=== PATIENT | male | born 1945 | race Caucasian/White ===

== ENCOUNTER 2018-09-16 16:52 | Inpatient (IN) | payer MEDICARE ==
[2018-09-16 17:50] LABS: Hemoglobin 10.7 g/dL (14.0-18.0); Mean Corpuscular HGB CONC 34.1 g/dL (32.0-36.0); Mean Corpuscular Hemoglobin 30.1 pg (27.0-31.0); Mean Corpuscular Volume 88.3 fL (78.0-98.0); Mean Platelet Volume 7.5 fL (7.4-10.4); Platelet Count 119 thou/uL (130-400); RBC Distribution Width 15.1 % (11.5-14.5); Red Blood Cell (RBC) Count 3.56 mill/uL (4.70-6.10); White Blood Cell (WBC) Count 1.4 thou/uL (4.8-10.8)
[2018-09-16 18:03] LABS: Anisocytosis SLIGHT = 6-15 cells (100X) (0-5/hpf); Band 27 % (5-11); Eosinophils 1 % (0-10); Lymphocytes 9 % (21-51); MDiff Complete? YES; Metamyelocyte 1 % (0-0); Monocytes 20 % (0-10); Neutrophil 41 % (42-75); PLT Morphology Comment Appears Decreased; Polychromasia SLIGHT = 2-3 cells (100X) (0-2/hpf); Reactive Lymphocytes 1 % (0-10)
--- NOTE | 2018-09-16 18:16 | RAD ---
PORTABLE CHEST: 09/16/18 PROVIDED CLINICAL HISTORY: Fever. FINDINGS: Heart appears enlarged, which may be at least partially on the basis of portable technique. The left hemidiaphragm is not well visualized, which may be on the basis of left basilar pleural and/or parenc hymal opacity. Cardiomegaly could also produce this appearance. Right lung appears clear. There is no evidence for pneumothorax. Left subclavian implanted port is noted with tip overlying expected locat ion of left brachiocephalic vein. IMPRESSION: Cardiomegaly with left basilar pleural and/or parenchymal opacity not excluded. POS: [facility]
[2018-09-16 18:17] LABS: ALT (SGPT) 78 U/L (8-55); AST (SGOT) 57 U/L (5-34); Albumin 3.4 g/dL (3.4-4.8); Alkaline Phosphatase 160 U/L (40-150); Anion Gap 10 mmol/L (10-20); BUN (Urea Nitrogen) 12 mg/dL (8.4-25.7); Bilirubin, Total 0.8 mg/dL (0.2-1.2); Calc. Creatinine Clearance 0 mL/min (70-130); Calcium 8.9 mg/dL (7.8-10.44); Carbon Dioxide 26 mmol/L (23-31); Chloride 99 mmol/L (98-107); Estimated GFR-MDRD Greater than 90; Globulin 3.6 g/dL (2.4-3.5); Glucose 94 mg/dL (83-110); Potassium 4.1 mmol/L (3.5-5.1); Sodium 131 mmol/L (136-145)
[2018-09-16 19:38] LABS: Bilirubin Negative (Negative); Blood, Urine Negative (Negative); Clarity CLEAR (Clear); Glucose, Urine (Dipstick) Negative (Negative); Leukocyte Trace (Negative); Nitrite Negative (Negative); Protein, Urine (Dipstick) Negative (Neg-Trace); Specific Gravity, Urine 1.017 (1.002-1.036)
[2018-09-16 19:43] LABS: Bacteria/HPF None Seen HPF (None Seen); Hyaline Casts/LPF 0-3 HYALINE CAST LPF (0-3 Hyaline); Pathc Cast-AUWi Flag 0.14 (0-2.49); RBC/HPF 0-3 HPF (0-3); Squamous Epithelial 0-3 HPF (0-3); WBC/HPF 0-3 HPF (0-3)
[2018-09-16] MEDS ORDERED: Cefepime 2 GM VIAL ONE (20:21)
[2018-09-16] MEDS ORDERED: Acetaminophen 325 MG/10.15 ML UDCUP ONE (21:12)
[2018-09-16] MEDS ORDERED: Acetaminophen 650 MG/20.3 ML UDCUP PER TUBE PRN (21:24)
[2018-09-16] MEDS ORDERED: Loperamide HCl 2 MG CAP PER TUBE PRN (21:24)
[2018-09-17] MEDS: Sodium Chloride 0.9% 1,000 ML IV SCH ×2 (00:16→11:52)
[2018-09-17 01:47] VITALS: BMI 32.6
--- NOTE | 2018-09-17 03:05 | HP ---
PRIMARY CARE PHYSICIAN: Dr. Eric Randolph. CHIEF COMPLAINT: Fever. HISTORY OF PRESENT ILLNESS: This patient is a 73-year-old male with a recent diagnosis of esophageal cancer. The patient has had a port placed and a PEG tube placed because of some obstructive symptoms. He started chemotherapy around with Dr. Cormier and he is also receiving external beam radiation therapy with Dr. Matthew. The patient had chemotherapy 8 days ago and was supposed to have chemotherapy again this week, but his counts were too low; therefore, it was withheld. The patient did go to radiation therapy today and everything was fine; however, when he got home, he developed rigors. He checked his temperature and it was 101.7. He called Dr. Cormier's office and was directed to the emergency department. He reports that he was completely asymptomatic prior to these rigors and felt fine yesterday. He has no specific symptoms to suggest any specific site of infection, this is his first time to have neutropenic fever. He has no ill contacts. He does report that he took some ibuprofen this morning for pain in his chest related to the tumor, but otherwise has not taken anything to address fever. He also reports that he has no knowledge of any metastases and was told that his tumor was still localized. FUNCTIONAL STATUS,: The patient reports he can get up, but cannot go very far and is frequently having to lean on mckenzie and such in order to stabilize himself. REVIEW OF SYSTEMS: The patient has had some decreased weight for about 3 months. He also reports that his sleep has been poor. He has no difficulty with hearing, vision, taste, or smell. He is not swallowing presently at all because of obstructive symptoms. He is, however, having frequent vomiting up saliva and secretions that are obstructed at the level of the tumor. He reports that he is not able to give himself adequate amounts of liquids through his PEG tube because after 2 ounces, he starts feeling discomfort. He is requiring [facility]. He denies any constipation, but reports he has chronic diarrhea secondary to the PEG feeds. He has been using [id number] Imodium in order to try to stop this, but it continues to be a problem. He does also report some occasional chest pain, but no palpitations or peripheral edema. He does have some chronic cough which he relates to his asthma, but feels that it is pretty well controlled right now. Denies any shortness of breath or wheezing. He denies dysuria, frequency, nocturia, or incontinence. He does have a few topical skin lesions. He denies numbness, weakness, or tingling. Denies anxiety. He does have some mild depression related to his cancer diagnosis. He has no polyuria, polydipsia, as he is not swallowing at all. All other systems were reviewed and pertinent positives and negatives noted in the history of present illness. PAST MEDICAL HISTORY: Notable for the esophageal cancer and asthma. PAST SURGICAL HISTORY: Colon resection almost 30 years ago. He reports he had a mass outside of his colon that required a partial colectomy at the time of surgery. He has had a left upper chest port placed and a PEG tube placed. He also has a remote history of nasal septal deviation repair and partial palatoplasty. FAMILY HISTORY: Father had hypertension and had a CVA. His mother is still alive at 92, she has diabetes. He has no siblings. SOCIAL HISTORY: The patient has a history remotely of smoking cigars and using smokeless tobacco. He indicates that his oncologist have told him that his cancer is not related to tobacco, but was more related to reflux. He denies alcohol or drugs. He is not . If he needed a surrogate decision maker, it would be his son, Franklin, or alternatively the people who are helping care for him in their home by the name of Mariam. CODE STATUS: Full. ALLERGIES: NONE. CURRENT MEDICATIONS: 1. Flovent 100 mcg one inhalation b.i.d. 2. ProAir HFA 90 mcg inhaled p.r.n. 3. Ipratropium bromide 21 mcg inhaled p.r.n. PHYSICAL EXAMINATION: VITAL SIGNS: Blood pressure 119/69, pulse 91, respirations 20, temperature 100.8, and O2 saturation 95% on room air. GENERAL APPEARANCE: Age-appropriate male, in no distress. He is awake, alert, oriented, very pleasant, very cooperative. The patient did have an episode of vomiting during our interview, in which case his emesis was very thick, clear secretions consistent with saliva. HEENT: PERRL. He has no OP lesions. He does have the partial palatoplasty with an absent uvula. NECK: Supple and symmetric. HEART: Regular rate and rhythm without murmurs, gallops, or rubs. The left chest port is intact and healthy. LUNGS: Completely clear to auscultation bilaterally. There are no wheezes or rales. ABDOMEN: Soft, nontender, and nondistended. The PEG tube site has a small halo of erythema under the external button area. It is slightly blanchable. There is no drainage. He has well-healed midline and right lower quadrant surgical incisions, which appear relatively fresh, but are in fact couple decades old at least. EXTREMITIES: Have 1+ edema in both pretibial areas, but otherwise good pulses. No clubbing or cyanosis. LABORATORY DATA: White count 1.4, hemoglobin 10.7, and platelets are 118. He has 41% neutrophils, 27% bands, 9% lymphocytes, and 20% monocytes. Sodium 131, potassium 4.1, chloride 99, CO2 is 26, BUN 12, creatinine 0.7, glucose 94, lactic acid 1.4. AST 57, ALT 78, alkaline phosphatase 160, and globulin 3.6. Urinalysis is negative. Influenza screen negative. Chest x-ray is clear, but left lower lobe pleural-based thickening or infiltrate could not be ruled out. IMPRESSION AND PLAN: 1. Neutropenic fever. The patient is borderline neutropenic. He will receive vancomycin and cefepime. He has no specific source identified, however, concerning for the fact that he is having this vomiting and the possibility of aspirating, although his lungs are clear and his chest x-ray actually looks pretty good by my review, it is also concerning for the possibility of a bit of redness around his PEG tube site, but should be adequately covered with vancomycin and cefepime, that will need to be watched closely and we will also follow up on his cultures for at least 48 hours and watch his counts daily to see if he can get recovery of his neutrophils. 2. Esophageal cancer. The patient has some obstructive symptoms. He is n.p.o. He is getting PEG tube feeds. We will try to continue those. 3. Chronic dehydration. The patient is not able to take adequate amounts of fluids in through his PEG because of some discomfort related to trying to infuse them. We will keep him on some IV fluids. 4. Vomiting. It appears to be purely regurgitating the saliva and secretions that cannot pass below the esophageal tumor. 5. Elevated liver enzymes. The patient has no evidence of metastasis, maybe related to the chemotherapy. We will continue to monitor. 6. Hyponatremia likely due to some dehydration. We will re-evaluate after some fluids. 7. History of asthma. The patient appears to be very well controlled at this point. He is having no wheezing. We will continue with Sandoval noriega and his usual Flovent. Job ID: [id number]
[2018-09-17] MEDS: Vancomycin HCl 1 GM in Premix Bag 1 BAG IVPB SCH ×3 (05:20→22:44)
[2018-09-17 05:52] LABS: ALT (SGPT) 62 U/L (8-55); AST (SGOT) 44 U/L (5-34); Albumin 2.9 g/dL (3.4-4.8); Alkaline Phosphatase 132 U/L (40-150); Anion Gap 7 mmol/L (10-20); BUN (Urea Nitrogen) 11 mg/dL (8.4-25.7); Bilirubin, Total 0.7 mg/dL (0.2-1.2); Calc. Creatinine Clearance 141 mL/min (70-130); Calcium 8.3 mg/dL (7.8-10.44); Carbon Dioxide 26 mmol/L (23-31); Chloride 106 mmol/L (98-107); Estimated GFR-MDRD Greater than 90; Glucose 95 mg/dL (83-110); Protein, Total 5.9 g/dL (5.8-8.1); Sodium 135 mmol/L (136-145)
[2018-09-17 05:54] LABS: Band 6 % (5-11); Hemoglobin 9.1 g/dL (14.0-18.0); Hypochromia SLIGHT = 6-15 cells (100X) (0-5/hpf); Lymphocytes 10 % (21-51); MDiff Complete? YES; Mean Corpuscular HGB CONC 34.2 g/dL (32.0-36.0); Mean Corpuscular Volume 87.8 fL (78.0-98.0); Mean Platelet Volume 7.4 fL (7.4-10.4); Monocytes 6 % (0-10); Neutrophil 78 % (42-75); PLT Morphology Comment Appears Decreased; Platelet Count 109 thou/uL (130-400); RBC Distribution Width 15.1 % (11.5-14.5); Red Blood Cell (RBC) Count 3.03 mill/uL (4.70-6.10); White Blood Cell (WBC) Count 1.5 thou/uL (4.8-10.8)
[2018-09-17] MEDS: Mometasone 100 MCG HFA INHALER INH SCH ×2 (07:55→19:42)
[2018-09-17] MEDS ORDERED: Mometasone 100 MCG HFA INHALER INH SCH (08:00)
--- NOTE | 2018-09-17 08:24 | PDOC.PN ---
- Subjective Encounter Start Date: 09/17/18 Encounter Start Time: 08:22 Mr. Palomo was seen today in follow-up of Neutropenic Fever. He says he feels fatigued. He does not " hurt anywhere". He got up last night, and found that the PEG tube had become dislodged. - Objective Resuscitation Status - Order Detail: 09/16/18 21:24 Resuscitation Status Routine Resuscitation Status: FULL: Full Resuscitation Discussed with: Patient MAR Reviewed: Yes Vital Signs & Weight: Vital Signs (12 hours) Temp Pulse Resp BP Pulse Ox 09/17/18 07:55 80 16 96 09/17/18 04:35 98.8 F 77 12 123/65 95 09/16/18 23:30 98.5 F 82 16 115/61 95 Weight Weight 221 lb I&O: 09/16/18 09/17/18 09/18/18 06:59 06:59 06:59 Intake Total 900 Balance 900 Result Diagrams: 09/17/18 05:27 09/17/18 05:27 Phys Exam - Physical Examination HEENT: PERRLA, sclera anicteric Respiratory: no wheezing, no rhonchi decreased breath sounds at the bases Cardiovascular: RRR, no significant murmur, no rub Gastrointestinal: soft, non-tender, no distention, positive bowel sounds PEG tube site is clean, no induration or erythema, Musculoskeletal: no edema, pulses present Dx/Plan (1) Neutropenic fever Code(s): D70.9 - NEUTROPENIA, UNSPECIFIED; R50.81 - FEVER PRESENTING WITH CONDITIONS CLASSIFIED ELSEWHERE Status: Acute (2) Esophageal cancer Status: Acute (3) Asthma Code(s): J45.909 - UNSPECIFIED ASTHMA, UNCOMPLICATED Status: Acute (4) PEG tube malfunction Code(s): K94.23 - GASTROSTOMY MALFUNCTION Status: Acute - Plan * Neutropenic Fever- Continue Vancomycin and Cefepime ( possible infectious process in the lungs)- however patient does not endorse any new pulmonary complaints. * Await culture results * Asthma- stable * Dislodged PEG tube- GI has been consulted ( he says the tube was placed in May of this year. .
[2018-09-17] MEDS ORDERED: Fluticasone Propionate HFA 110 MCG AER INH SCH (09:00)
[2018-09-17] MEDS ORDERED: Vancomycin HCl 1 GM in Premix Bag 1 BAG IVPB SCH (09:00)
[2018-09-17] MEDS ORDERED: Acetaminophen 650 MG Suppository PR PRN (09:16)
[2018-09-17] MEDS: Enoxaparin Sodium 40 MG/0.4 ML SYRINGE SC SCH (10:14)
[2018-09-17] MEDS: Cefepime 1 GM in Sodium Chloride 0.9% 100 ML IVPB SCH ×2 (10:51→21:40)
[2018-09-17] MEDS: Famotidine 20 MG TAB PER TUBE SCH ×2 (11:00→21:41)
[2018-09-17 18:58] LABS: INR-International Normal Ratio 1.2; Prothrombin Time 15.1 SEC (12.0-14.7)
[2018-09-17 18:59] LABS: PTT 38.6 SEC (22.9-36.1)
[2018-09-17 19:04] LABS: Cardiac Risk 7.7 (Less than 4.5); Cholesterol 153 mg/dl (< 200 Desired); HDL Cholesterol 20 mg/dL (>60 Neg Risk); LDL Cholesterol, Calculated 104 mg/dL; Magnesium 1.7 mg/dL (1.6-2.6); Phosphorus 2.6 mg/dL (2.3-4.7); Triglycerides 146 mg/dL (Less than 150)
[2018-09-17 21:21] LABS: Vancomycin, Trough 13.4 ug/mL
[2018-09-17] MEDS ORDERED: MULTIVITAMINS IV SCH (22:00)
[2018-09-17] MEDS ORDERED: D15W AA 5% IV SCH (22:00)
[2018-09-17] MEDS ORDERED: FAMOTIDINE IV SCH (22:00)
[2018-09-17] MEDS ORDERED: [UNRECOGNIZED DRUG - OTHER] IV SCH (22:00)
[2018-09-17] MEDS ORDERED: MULTITRACE IV SCH (22:00)
--- NOTE | 2018-09-17 23:49 | CON ---
DATE OF CONSULTATION: REASON FOR CONSULTATION: Neutropenic fever and esophageal cancer. HISTORY OF PRESENT ILLNESS: A 73-year-old male with esophageal carcinoma, currently on concurrent chemotherapy and radiation with carboplatin and Taxol, last received on Saturday, September 08, 2018, presenting to the hospital with fever. The patient states that he went home from radiation yesterday and began having the shakes around 3:30 p.m. He took his temperature and it was 101.7. He called the [facility] and was directed to the emergency department. He denies any other specific symptoms recently. He states prior to this he felt okay and felt fine during radiation. In the ER, the patient was found to have a temperature of 100.8 and has since been afebrile. The patient denies any ongoing fevers or chills, nausea, vomiting, or constipation. The patient does endorse diarrhea, which has been ongoing and is not worse. Chest x-ray done in the emergency room showed a left basilar pleural and/or parenchymal opacity suspicious for possible pneumonia. The patient has been started on vancomycin and cefepime. Once admitted to the floor, the patient was trying to use the urinal at the bedside, and when he lied back down in bed, he noticed his PEG tube had fallen out. The patient does endorse some pain at the site along with redness. The patient is unable to take anything by mouth including liquids due to complete obstruction. REVIEW OF SYSTEMS: Ten-point review of systems negative except as per HPI. PAST MEDICAL HISTORY: Asthma and esophageal cancer. PAST SURGICAL HISTORY: Colon resection approximately 30 years ago, PEG tube placement, MediPort placement, nasal septal deviation repair and partial palatoplasty years ago. FAMILY HISTORY: No family history of cancer. SOCIAL HISTORY: Remote history of cigar smoking and smokeless tobacco. ALLERGIES: NONE. CURRENT MEDICATIONS: Reviewed. PHYSICAL EXAMINATION: VITAL SIGNS: Temperature 99.7, pulse 83, respirations 16, saturating 93% on room air, blood pressure 127/61. GENERAL APPEARANCE: The patient is lying in bed, in no acute distress. Appears comfortable. HEENT: No scleral icterus. No oral lesions. NECK: Supple without lymphadenopathy. CARDIAC: S1 and S2 with regular rhythm and rate. LUNGS: Clear to auscultation bilaterally without wheezes, rales, or rhonchi. ABDOMEN: Soft, nondistended, and nontender. PEG tube site is dressed without PEG tube present. The patient wished that this was not removed again as it had been removed multiple times and is painful. EXTREMITIES: 1+ edema. NEUROLOGIC: Cranial nerves 2 through 12 are grossly intact. PSYCHIATRIC: Awake, alert, and oriented x3 with appropriate mood and affect. LABORATORY DATA: White blood cells 1.5, hemoglobin 9.1, platelets 109, neutrophils 78%, ANC 1170. Sodium 135, potassium 4.0, BUN 11, creatinine 0.66, AST 44, ALT 62, alkaline phosphatase 132, albumin 2.9. Blood cultures, currently no growth to date. IMAGING DATA: Chest x-ray dated September 16, 2018, left hemidiaphragm is not well visualized, which may be on the basis of left basilar pleural and/or parenchymal opacity. ASSESSMENT AND PLAN: A 73-year-old male with localized esophageal adenocarcinoma, currently on concurrent chemotherapy and radiation with carboplatin and Taxol, presenting with febrile neutropenia. The patient had a fever up to 101.7 at home and 100.8 in the hospital and is currently afebrile. There was a question of pneumonia on the chest x-ray; however, the patient does not endorse any symptoms of this. There is some redness around his PEG tube site, which has now fallen out, and he is currently on vancomycin and cefepime. The patient does not appear ill , and his ANC is greater than 1000. Recommend consulting with Dr. Bal for replacement of PEG tube however may consider TPN for 1-2 days to monitor neutropenia to make sure his counts do not drop prior to reinsertion. Continue antibiotics for now and follow up blood cultures. If the patient continues to be afebrile and blood cultures do not grow anything, then antibiotics can be stopped. We will follow along with you. Thank you for this consult. Job ID: [id number] MTDD
--- NOTE | 2018-09-18 03:01 | CON ---
DATE OF CONSULTATION: HISTORY OF PRESENT ILLNESS: The patient is a 73-year-old male with a history of esophageal cancer, who presented with fever and chills. He is presently on chemotherapy and got his last chemotherapy approximately 7 days to 8 days ago. He had a temperature of 101.7 at home. He was up in the hospital, moving around, and noticed his feeding tube had slipped out. He reports he is not able to swallow much liquids and definitely no solids. PAST MEDICAL HISTORY: Includes esophageal cancer and asthma. PAST SURGICAL HISTORY: Colon resection, port placement, jejunostomy tube, and a septal deviation repair. SOCIAL HISTORY: Significant for use of tobacco in the past. He does not drink. ALLERGIES: NONE. HOME MEDICATIONS: Include, 1. Flovent one inhalation b.i.d. 2. ProAir. 3. Ipratropium bromide. FAMILY HISTORY: Negative for GI or liver disease. REVIEW OF SYSTEMS: CONSTITUTIONAL: Positive for fever and chills. Positive for weight loss. EYES: No blurred vision or double vision. ENT: No sore throat or earaches. CARDIOVASCULAR: No chest pain or palpitations. PULMONARY: No shortness of breath, cough, or wheeze. GI: See above. : No hematuria or dysuria. MUSCULOSKELETAL: No joint pain or muscle weakness. SKIN: No rashes. NEUROLOGIC: No numbness or seizure activity. PHYSICAL EXAMINATION: GENERAL: Shows a well-developed and well-nourished white male, in no acute distress. VITAL SIGNS: Temperature 99.7, pulse 83, respiratory rate 16, and blood pressure 127/61. HEENT: Unremarkable. NECK: Supple. CHEST: Clear. CARDIOVASCULAR: Regular rate and rhythm. ABDOMEN: Soft, tender around the jejunostomy site. There is some redness and tenderness. RECTAL: Deferred. EXTREMITIES: Normal. NEUROLOGIC: Nonfocal. LABORATORY DATA: Show admission white blood cell count of 1.4, hemoglobin 10.7, hematocrit 31.5, platelet count 119, he had 41% neutrophils and 27% bands. Chemistry is significant for an AST of 57, ALT of 78, and alkaline phosphatase of 160; repeat showed an AST of 44 and ALT of 62. ASSESSMENT: 1. Failed J-tube. 2. History of esophageal cancer, undergoing radiochemotherapy. 3. J-tube site infection, mild. 4. Neutropenic fever. 5. Malnutrition. RECOMMENDATIONS: 1. The question here is whether the patient will undergo a PEG versus jejunostomy replacement. Either way, because of his neutropenia, these cannot be done at the present time. 2. TPN until neutropenia resolves. Then, a decision can be made about whether to place a gastrostomy versus jejunostomy. 3. Antibiotic coverage. Job ID: [id number]
[2018-09-18 05:07] LABS: ALT (SGPT) 47 U/L (8-55); AST (SGOT) 42 U/L (5-34); Albumin 2.7 g/dL (3.4-4.8); Alkaline Phosphatase 118 U/L (40-150); Anion Gap 11 mmol/L (10-20); BUN (Urea Nitrogen) 10 mg/dL (8.4-25.7); Bilirubin, Total 0.6 mg/dL (0.2-1.2); Calc. Creatinine Clearance 146 mL/min (70-130); Calcium 8.2 mg/dL (7.8-10.44); Carbon Dioxide 20 mmol/L (23-31); Chloride 105 mmol/L (98-107); Estimated GFR-MDRD Greater than 90; Globulin 3.2 g/dL (2.4-3.5); Glucose 126 mg/dL (83-110); Potassium 4.4 mmol/L (3.5-5.1); Protein, Total 5.9 g/dL (5.8-8.1); Sodium 132 mmol/L (136-145)
[2018-09-18 05:11] LABS: Band 20 % (5-11); Hemoglobin 9.3 g/dL (14.0-18.0); Lymphocytes 12 % (21-51); MDiff Complete? YES; Mean Corpuscular HGB CONC 34.1 g/dL (32.0-36.0); Mean Corpuscular Hemoglobin 30.3 pg (27.0-31.0); Mean Corpuscular Volume 88.7 fL (78.0-98.0); Mean Platelet Volume 8.6 fL (7.4-10.4); Monocytes 16 % (0-10); Neutrophil 52 % (42-75); PLT Morphology Comment Appears Decreased; Platelet Count 90 thou/uL (130-400); RBC Distribution Width 15.1 % (11.5-14.5); Red Blood Cell (RBC) Count 3.07 mill/uL (4.70-6.10); White Blood Cell (WBC) Count 1.8 thou/uL (4.8-10.8)
[2018-09-18] MEDS: Vancomycin HCl 1 GM in Premix Bag 1 BAG IVPB SCH ×3 (05:51→23:02)
[2018-09-18] MEDS: Mometasone 100 MCG HFA INHALER INH SCH ×2 (06:40→19:24)
--- NOTE | 2018-09-18 08:14 | PDOC.PN ---
- Subjective Encounter Start Date: 09/18/18 Encounter Start Time: 08:12 Mr. Palomo was seen today in follow-up of Neutropenic fever, and Dislodged J- tube. Today he is feeling a bit fatigued. He has an occasional cough, but attributes this to Asthma. - Objective Resuscitation Status - Order Detail: 09/16/18 21:24 Resuscitation Status Routine Resuscitation Status: FULL: Full Resuscitation Discussed with: Patient MAR Reviewed: Yes Vital Signs & Weight: Vital Signs (12 hours) Temp Pulse Resp BP Pulse Ox 09/18/18 06:40 83 16 96 09/18/18 04:00 98.7 F 86 16 106/61 95 09/17/18 23:48 98.8 F 95 20 134/70 94 L Weight Admit Weight 221 lb Weight 221 lb I&O: 09/17/18 09/18/18 09/19/18 06:59 06:59 06:59 Intake Total 900 1310 Balance 900 1310 Result Diagrams: 09/18/18 04:28 09/18/18 04:28 Additional Labs: Accuchecks 09/17/18 23:22 POC Glucose 147 H Phys Exam - Physical Examination HEENT: PERRLA Respiratory: no wheezing, no rales, no rhonchi, clear to auscultation bilateral Cardiovascular: RRR, no significant murmur, no rub Gastrointestinal: soft, non-tender, no distention, positive bowel sounds Musculoskeletal: edema present + trace pedal edema Dx/Plan (1) Neutropenic fever Code(s): D70.9 - NEUTROPENIA, UNSPECIFIED; R50.81 - FEVER PRESENTING WITH CONDITIONS CLASSIFIED ELSEWHERE Status: Acute (2) Esophageal cancer Status: Acute (3) Asthma Code(s): J45.909 - UNSPECIFIED ASTHMA, UNCOMPLICATED Status: Acute (4) PEG tube malfunction Code(s): K94.23 - GASTROSTOMY MALFUNCTION Status: Acute - Plan * Neutropenic fever- he has been afebrile, and his cultures are negative so far. * His ANC is about 1,260- and therefore can discontinue Neutropenic precautions * Dislodged J-tube- discussed with Dr. Cormier- Surgery has been consulted, to replace the tube * Asthma- stable * Esophageal cancer- he is actively being treated..
[2018-09-18] MEDS: Enoxaparin Sodium 40 MG/0.4 ML SYRINGE SC SCH (08:33)
[2018-09-18] MEDS: Famotidine 20 MG TAB PER TUBE SCH ×2 (08:33→23:03)
[2018-09-18] MEDS: Sodium Chloride 0.9% 1,000 ML IV SCH (08:38)
[2018-09-18] MEDS: Cefepime 1 GM in Sodium Chloride 0.9% 100 ML IVPB SCH ×2 (08:38→20:30)
--- NOTE | 2018-09-18 13:54 | PRG ---
DATE OF SERVICE: 09/18/2018 SUBJECTIVE: The patient is feeling about the same. OBJECTIVE: VITAL SIGNS: Temperature 98.6, pulse 84, respiratory rate 18, and blood pressure 123/71. CHEST: Clear. CARDIOVASCULAR: Regular rate and rhythm. ABDOMEN: Benign. LABORATORY DATA: Shows a white blood cell count of 1.8, hemoglobin 9.3, platelet count of 90. ASSESSMENT: 1. Failed J-tube. 2. Esophageal cancer. 3. Neutropenic fever. RECOMMENDATIONS: 1. Continue TPN until J-tube can be replaced. 2. We will sign off. Job ID: [id number]
[2018-09-18 21:27] LABS: Vancomycin, Trough 14.9 ug/mL
[2018-09-18] MEDS: Multivitamins, Adult 10 ML, Multitrace-5 5 ML, Fat Emulsion 250 ML in D15W-AA 5% with L... IV SCH (23:04)
--- NOTE | 2018-09-19 01:28 | HP ---
HISTORY OF PRESENT ILLNESS: Oli Palomo is a 73-year-old male patient with esophageal cancer. I have seen him in the office because of feeding tube mechanical problems, educated him on this. I explained to the family it is very important to replace the tube comes out immediately. The patient was unfortunately hospitalized on 09/16/2018. During this hospitalization, his feeding tube became dislodged and it was not replaced. Dr. Bal saw him. Unfortunately, this tube has been out too long and he will need another laparotomy to replace it. Gastrostomy tube is not appropriate due to the fact that he will need a gastric pull-up for his future surgery plan. PAST MEDICAL HISTORY: Esophageal cancer, asthma. PAST SURGICAL HISTORY: Colon resection more than 30 years ago, open right lower quadrant transverse incision, he said it was benign. Left subclavian vein MediPort, feeding jejunostomy tube placement in [place]. Nasal septal defect. SOCIAL HISTORY: Tobacco, none currently. Alcohol, none currently. Drug use, none. MEDICATIONS: 1. Flovent. 2. ProAir. PHYSICAL EXAMINATION: VITAL SIGNS: 5 feet 9 inches, 221 pounds, 32 BMI. 98.6, 84, and 123/71. HEENT: Ears, eyes, nose and throat unremarkable. LUNGS: Clear to auscultation. CARDIAC: Regular rate and rhythm without murmur or gallop. ABDOMEN: Soft and nontender. Transverse right lower quadrant incision from prior colon resection 30 years ago. Midline incision supraumbilical from feeding tube placement. ASSESSMENT AND PLAN: Feeding tube . We will plan replacement of his feeding tube. Risks and benefits explained, he consents. Job ID: [id number]
[2018-09-19] MEDS: Vancomycin HCl 1 GM in Premix Bag 1 BAG IVPB SCH ×2 (04:50→13:59)
[2018-09-19 05:31] LABS: ALT (SGPT) 46 U/L (8-55); AST (SGOT) 37 U/L (5-34); Albumin 2.8 g/dL (3.4-4.8); Alkaline Phosphatase 126 U/L (40-150); Anion Gap 11 mmol/L (10-20); BUN (Urea Nitrogen) 10 mg/dL (8.4-25.7); Bilirubin, Total 0.5 mg/dL (0.2-1.2); Calc. Creatinine Clearance 155 mL/min (70-130); Calcium 8.4 mg/dL (7.8-10.44); Carbon Dioxide 22 mmol/L (23-31); Chloride 104 mmol/L (98-107); Estimated GFR-MDRD Greater than 90; Globulin 3.2 g/dL (2.4-3.5); Glucose 144 mg/dL (83-110); Potassium 3.9 mmol/L (3.5-5.1); Sodium 133 mmol/L (136-145)
[2018-09-19 05:47] LABS: Band 15 % (5-11); Eosinophils 1 % (0-10); Hemoglobin 9.8 g/dL (14.0-18.0); Lymphocytes 10 % (21-51); MDiff Complete? YES; Mean Corpuscular HGB CONC 34.1 g/dL (32.0-36.0); Mean Corpuscular Hemoglobin 30.1 pg (27.0-31.0); Mean Corpuscular Volume 88.2 fL (78.0-98.0); Mean Platelet Volume 7.6 fL (7.4-10.4); Monocytes 25 % (0-10); Neutrophil 49 % (42-75); Platelet Count 126 thou/uL (130-400); RBC Distribution Width 15.2 % (11.5-14.5); Red Blood Cell (RBC) Count 3.25 mill/uL (4.70-6.10); White Blood Cell (WBC) Count 1.6 thou/uL (4.8-10.8)
[2018-09-19] MEDS: Mometasone 100 MCG HFA INHALER INH SCH ×2 (06:31→19:05)
[2018-09-19] MEDS: Sodium Chloride 0.9% 1,000 ML IV SCH (06:48)
--- NOTE | 2018-09-19 08:02 | PDOC.PN ---
- Subjective Encounter Start Date: 09/19/18 Encounter Start Time: 08:00 Mr. Palomo was seen today in follow-up of Neutropenic fever, and dislodged J- Tube. He is concerned that he may miss his Radiation treatment today. He denies difficulty breathing, he denies abdominal pain. - Objective Resuscitation Status - Order Detail: 09/16/18 21:24 Resuscitation Status Routine Resuscitation Status: FULL: Full Resuscitation Discussed with: Patient MAR Reviewed: Yes Vital Signs & Weight: Vital Signs (12 hours) Pulse Resp Pulse Ox 09/19/18 06:31 78 16 95 09/18/18 20:00 94 L Weight Admit Weight 221 lb Weight 221 lb I&O: 09/18/18 09/19/18 09/20/18 06:59 06:59 06:59 Intake Total 1310 1435 Output Total 250 Balance 1310 1185 Result Diagrams: 09/19/18 04:15 09/19/18 04:15 Additional Labs: Accuchecks 09/19/18 09/19/18 09/18/18 05:36 01:13 17:39 POC Glucose 148 H 119 H 129 H 09/18/18 12:14 POC Glucose 127 H Phys Exam - Physical Examination HEENT: PERRLA Respiratory: no wheezing, no rales, no rhonchi, clear to auscultation bilateral Cardiovascular: RRR, no significant murmur, no rub Gastrointestinal: soft, non-tender, no distention, positive bowel sounds Musculoskeletal: no edema, pulses present Dx/Plan (1) Neutropenic fever Code(s): D70.9 - NEUTROPENIA, UNSPECIFIED; R50.81 - FEVER PRESENTING WITH CONDITIONS CLASSIFIED ELSEWHERE Status: Acute (2) Esophageal cancer Status: Acute (3) Asthma Code(s): J45.909 - UNSPECIFIED ASTHMA, UNCOMPLICATED Status: Acute (4) PEG tube malfunction Code(s): K94.23 - GASTROSTOMY MALFUNCTION Status: Acute - Plan * Neutropenic fever- he has not had fever since his admission to this hospital * His ANC is approximately 1,100.- could likely discontinue antibiotics- likely after his procedure * Awaiting J- tube placement. * Asthma- stable * Esophageal Cancer- he is currently undergoing radiation - will notify Dr. Matthew of his admission
[2018-09-19] MEDS: Famotidine 20 MG TAB PER TUBE SCH ×3 (11:53→21:06)
[2018-09-19] MEDS: Cefepime 1 GM in Sodium Chloride 0.9% 100 ML IVPB SCH ×2 (11:53→21:30)
[2018-09-19] MEDS: Enoxaparin Sodium 40 MG/0.4 ML SYRINGE SC SCH (12:05)
[2018-09-19] MEDS ORDERED: Ketorolac Tromethamine 30 MG/ML VIAL IVP SCH (20:15)
[2018-09-19 21:17] LABS: Vancomycin, Trough 10.5 ug/mL
[2018-09-19] MEDS: Vancomycin HCl 1.5 GM in Sodium Chloride 0.9% 250 ML 300 ML IVPB SCH (22:15)
[2018-09-19] MEDS ORDERED: Meropenem 1 GM in Sodium Chloride 0.9% 100 ML IVPB SCH (22:45)
[2018-09-19] MEDS ORDERED: MEROPENEM 1 GM/50 ML 1 GM in Premix Bag 1 BAG IVPB SCH (23:15)
[2018-09-19] MEDS: Multivitamins, Adult 10 ML, Multitrace-5 5 ML, Fat Emulsion 250 ML in D15W-AA 5% with L... IV SCH (23:30)
--- NOTE | 2018-09-19 23:38 | PRG ---
DATE OF SERVICE: 09/19/2018 Oli Palomo was scheduled for replacement of his jejunal feeding tube today, but operating room had emergencies and it is too late and plan is to reschedule this for tomorrow. He will need another Hibiclens shower tonight or in the morning and we will plan placement of this feeding jejunostomy tube in the morning. Job ID: [id number]
[2018-09-20] MEDS: Sodium Chloride 0.9% 1,000 ML IV SCH ×2 (04:48→22:35)
[2018-09-20] MEDS: Vancomycin HCl 1.5 GM in Sodium Chloride 0.9% 250 ML 300 ML IVPB SCH ×3 (04:50→22:36)
[2018-09-20 05:45] LABS: Anion Gap 10 mmol/L (10-20); BUN (Urea Nitrogen) 12 mg/dL (8.4-25.7); Calc. Creatinine Clearance 150 mL/min (70-130); Calcium 8.6 mg/dL (7.8-10.44); Carbon Dioxide 23 mmol/L (23-31); Chloride 105 mmol/L (98-107); Estimated GFR-MDRD Greater than 90; Glucose 126 mg/dL (83-110); Potassium 4.1 mmol/L (3.5-5.1); Sodium 134 mmol/L (136-145)
[2018-09-20] MEDS: Mometasone 100 MCG HFA INHALER INH SCH ×2 (07:57→19:45)
[2018-09-20] MEDS ORDERED: Bupivacaine HCl 0.5%/Epinephrine 1:200,000/PF 30 ml Vial ONE (10:20)
[2018-09-20] MEDS: Cefepime 1 GM in Sodium Chloride 0.9% 100 ML IVPB SCH ×2 (10:39→21:47)
[2018-09-20] MEDS: Famotidine 20 MG TAB PER TUBE SCH ×2 (10:43→21:00)
[2018-09-20] MEDS: Enoxaparin Sodium 40 MG/0.4 ML SYRINGE SC SCH (10:43)
[2018-09-20] MEDS ORDERED: Fentanyl 100 MCG/2 ML VIAL ONE ×3 (10:56→19:58)
--- NOTE | 2018-09-20 11:29 | PDOC.PN ---
- Subjective Encounter Start Date: 09/20/18 Encounter Start Time: 07:45 Expresses no specific complaint. - Objective Resuscitation Status - Order Detail: 09/16/18 21:24 Resuscitation Status Routine Resuscitation Status: FULL: Full Resuscitation Discussed with: Patient Vital Signs & Weight: Vital Signs (12 hours) Pulse Resp Pulse Ox 09/20/18 07:57 88 16 95 Weight Admit Weight 221 lb Weight 221 lb I&O: 09/19/18 09/20/18 09/21/18 06:59 06:59 06:59 Intake Total 1435 0 Output Total 250 350 Balance 1185 -350 Result Diagrams: 09/19/18 04:15 09/20/18 04:12 Additional Labs: Accuchecks 09/20/18 09/20/18 09/19/18 04:12 00:57 17:08 POC Glucose 128 H 131 H 139 H 09/19/18 11:56 POC Glucose 119 H Phys Exam - Physical Examination Constitutional: NAD Neck: no JVD Respiratory: clear to auscultation bilateral Cardiovascular: RRR Gastrointestinal: soft Musculoskeletal: no edema Neurological: moves all 4 limbs Psychiatric: A&O x 3 Dx/Plan (1) Asthma Code(s): J45.909 - UNSPECIFIED ASTHMA, UNCOMPLICATED Status: Acute Comment: Not a problem at this time.. (2) Esophageal cancer Status: Acute Comment: On Radiation.. (3) Neutropenic fever Code(s): D70.9 - NEUTROPENIA, UNSPECIFIED; R50.81 - FEVER PRESENTING WITH CONDITIONS CLASSIFIED ELSEWHERE Status: Acute Comment: WBC 1.6 with 49% of neutrophils.. On antibiotics.. (4) PEG tube malfunction Code(s): K94.23 - GASTROSTOMY MALFUNCTION Status: Acute Comment: For PEG replacement today. - Plan Continue current therapy. -: f/u with consultants.. * .
[2018-09-20] MEDS ORDERED: Lidocaine 1% PF 5 ML VIAL ONE (14:48)
[2018-09-20] MEDS ORDERED: PHENYLEPHRINE-NS 100 MCG/ML 10 ML SYRINGE ONE (14:48)
[2018-09-20] MEDS ORDERED: Glycopyrrolate 0.2 MG/ML 5 ML SYRINGE ONE (14:48)
[2018-09-20] MEDS ORDERED: PROPOFOL 200 MG/20 ML VIAL ONE (14:48)
[2018-09-20] MEDS ORDERED: Dexamethasone 20 MG/5 ML VIAL ONE (14:48)
[2018-09-20] MEDS ORDERED: Succinylcholine Chloride 20 MG/ML 10 ml SYRINGE FS ONE (14:48)
[2018-09-20] MEDS ORDERED: Ondansetron PF 4 MG/2 ML Vial ONE (14:48)
[2018-09-20] MEDS ORDERED: Ketorolac Tromethamine 30 MG/ML VIAL ONE (17:01)
[2018-09-20] MEDS ORDERED: HYDROmorphone 2 MG/ML VIAL SLOW IVP PRN (19:31)
[2018-09-20] MEDS ORDERED: Promethazine HCl 25 MG/ML VIAL IM PRN ×2 (19:31→20:03)
[2018-09-20] MEDS ORDERED: Promethazine HCl 25 MG/ML VIAL SLOW IVP PRN (19:31)
[2018-09-20] MEDS ORDERED: PACU-Morphine 4MG/ML VIAL SLOW IVP PRN (19:31)
[2018-09-20] MEDS ORDERED: Ondansetron HCl/PF 4 MG/2 ML Vial IVP PRN (19:31)
[2018-09-20] MEDS ORDERED: diphenhydrAMINE 50 MG/ML VIAL IVP PRN (20:03)
[2018-09-20] MEDS ORDERED: Zolpidem Tartrate 5 MG TAB PO PRN (20:03)
[2018-09-20] MEDS ORDERED: Ondansetron PF 4 MG/2 ML Vial IVP PRN (20:03)
[2018-09-20] MEDS ORDERED: diphenhydrAMINE 25 MG CAP PO PRN (20:03)
[2018-09-20] MEDS ORDERED: diphenhydrAMINE 50 MG/ML VIAL IM PRN (20:03)
[2018-09-20] MEDS ORDERED: Naloxone HCl 0.4 mg/ml Vial IV PRN (20:03)
[2018-09-20] MEDS ORDERED: Morphine CADD 1 MG/ML CADD IVPB PRN (20:03)
[2018-09-20] MEDS ORDERED: Communication Order-Pharmacy FS SCH (20:15)
[2018-09-20 22:20] LABS: Vancomycin, Trough 16.9 ug/mL
[2018-09-20] MEDS: Multivitamins, Adult 10 ML, Multitrace-5 5 ML, Fat Emulsion 250 ML in D15W-AA 5% with L... IV SCH (22:25)
--- NOTE | 2018-09-21 01:02 | OP ---
DATE OF PROCEDURE: 09/20/2018 PREOPERATIVE DIAGNOSES: Esophageal cancer, obstructive dislodged feeding tube, adhesions from prior surgery. POSTOPERATIVE DIAGNOSES: Esophageal cancer, obstructive dislodged feeding tube, adhesions from prior surgery. PROCEDURES PERFORMED: Laparoscopy converted to laparotomy with feeding jejunostomy tube, balloon catheters 3 mL, and closure of old enterotomy from previous feeding tube. ANESTHESIA: General. DESCRIPTION OF PROCEDURE: The patient was taken to the operating room, where under general anesthesia, abdomen was prepared with ChloraPrep and draped in routine fashion. Local anesthetic was infiltrated in the skin and subcutaneous tissue about the operative site. Right lateral subcostal incision was made. Pneumoperitoneum to 15 mmHg obtained with Veress needle, replaced with a 5 port and the laparoscope inserted. There were preoperative adhesions in the midline requiring conversion to laparotomy. A midline incision was made through the old scar supraumbilical midline and carried down through skin and subcutaneous tissue, midline fascia, and abdominal cavity sharply. Adhesiolysis carried out freeing all fatty tissue from the abdominal wall, identified an old feeding jejunostomy site in the left upper quadrant, taking it down, and there was a serosal defect closed with a transverse standard TIFF stapler. Just distal to this well beyond the ligament of Treitz, a feeding jejunostomy tube was placed through a defect in the left lateral abdomen upper and brought into the abdominal cavity and fed through the enterotomy at the mesenteric and threaded down the distal small bowel. The balloon port was inflated in the small bowel and a Witzel tunnel created with interrupted Lembert suture with 3-0 silk around the feeding jejunostomy tube, it was then secured to the abdominal wall with interrupted sutures of 3-0 silk. The patient tolerated the procedure well. Abdominal cavity was irrigated. Seprafilm applied. Good hemostasis noted and obtained with cautery. Midline fascia was closed with 1 PDS suture, subcutaneous tissues with 3-0 Monocryl, and skin with subdermal 4-0 Monocryl, derma glue applied. Job ID: [id number]
[2018-09-21 04:37] LABS: Anion Gap 8 mmol/L (10-20); BUN (Urea Nitrogen) 11 mg/dL (8.4-25.7); Calc. Creatinine Clearance 146 mL/min (70-130); Calcium 8.2 mg/dL (7.8-10.44); Carbon Dioxide 23 mmol/L (23-31); Chloride 107 mmol/L (98-107); Estimated GFR-MDRD Greater than 90; Glucose 185 mg/dL (83-110); Potassium 4.9 mmol/L (3.5-5.1); Sodium 133 mmol/L (136-145)
[2018-09-21] MEDS: Vancomycin HCl 1.5 GM in Sodium Chloride 0.9% 250 ML 300 ML IVPB SCH ×2 (05:49→13:41)
[2018-09-21] MEDS: Mometasone 100 MCG HFA INHALER INH SCH ×2 (07:09→19:57)
[2018-09-21] MEDS: Cefepime 1 GM in Sodium Chloride 0.9% 100 ML IVPB SCH ×2 (08:50→21:08)
[2018-09-21] MEDS: Enoxaparin Sodium 40 MG/0.4 ML SYRINGE SC SCH (08:51)
[2018-09-21] MEDS ORDERED: Ibuprofen 100 MG/5 ML UDCUP PER TUBE PRN (09:18)
[2018-09-21] MEDS ORDERED: Acetaminophen 650 MG/20.3 ML UDCUP PER TUBE PRN (09:21)
--- NOTE | 2018-09-21 09:39 | PDOC.PN ---
- Subjective Encounter Start Date: 09/21/18 Encounter Start Time: 09:20 Some abdominal discomfort.. - Objective Resuscitation Status - Order Detail: 09/16/18 21:24 Resuscitation Status Routine Resuscitation Status: FULL: Full Resuscitation Discussed with: Patient Vital Signs & Weight: Vital Signs (12 hours) Temp Pulse Resp BP Pulse Ox 09/21/18 08:40 98.5 F 86 18 116/65 97 09/21/18 07:09 84 16 96 09/21/18 04:00 97.6 F 80 16 100/65 99 09/21/18 00:00 98.7 F 82 16 125/67 98 Weight Admit Weight 221 lb Weight 221 lb I&O: 09/20/18 09/21/18 09/22/18 06:59 06:59 06:59 Intake Total 0 Output Total 350 Balance -350 Result Diagrams: 09/19/18 04:15 09/21/18 04:02 Additional Labs: Accuchecks 09/20/18 23:25 POC Glucose 149 H Phys Exam - Physical Examination Neck: no JVD Respiratory: clear to auscultation bilateral Cardiovascular: RRR Gastrointestinal: soft Musculoskeletal: no edema Neurological: moves all 4 limbs Dx/Plan (1) Asthma Code(s): J45.909 - UNSPECIFIED ASTHMA, UNCOMPLICATED Status: Acute Comment: Not a problem at this time.. (2) Esophageal cancer Status: Acute Comment: On Radiation.. f/u with oncology.. (3) Neutropenic fever Code(s): D70.9 - NEUTROPENIA, UNSPECIFIED; R50.81 - FEVER PRESENTING WITH CONDITIONS CLASSIFIED ELSEWHERE Status: Acute Comment: f/u cbc & diff On antibiotics.. (4) PEG tube malfunction Code(s): K94.23 - GASTROSTOMY MALFUNCTION Status: Acute Comment: s/p peg replacement... - Plan * .
[2018-09-21 09:49] LABS: Band 25 % (5-11); Hemoglobin 10.1 g/dL (14.0-18.0); Lymphocytes 10 % (21-51); MDiff Complete? YES; Mean Corpuscular HGB CONC 33.6 g/dL (32.0-36.0); Mean Corpuscular Hemoglobin 30.2 pg (27.0-31.0); Mean Corpuscular Volume 89.8 fL (78.0-98.0); Mean Platelet Volume 7.4 fL (7.4-10.4); Monocytes 6 % (0-10); Neutrophil 59 % (42-75); Platelet Count 150 thou/uL (130-400); RBC Distribution Width 15.6 % (11.5-14.5); Red Blood Cell (RBC) Count 3.36 mill/uL (4.70-6.10); White Blood Cell (WBC) Count 3.2 thou/uL (4.8-10.8)
--- NOTE | 2018-09-21 09:56 | PRG ---
DATE OF SERVICE: 09/21/2018 SUBJECTIVE: Oli Palomo is doing well today. He is using his SENIOR [employer] SOFTWARE DEVELOPER for pain. This is effective. He is trying to minimize the use. He has had an incisional pain from his laparotomy for feeding tube replacement yesterday, otherwise doing well. OBJECTIVE: VITAL SIGNS: Temperature 98.5 degrees, pulse 86, blood pressure 116/65. LUNGS: Clear to auscultation. CARDIAC: Regular rate and rhythm without murmur or gallop. ABDOMEN: Soft. Bowel sounds present. Incision looks good. Feeding tube site looks good. EXTREMITIES: Unremarkable. ASSESSMENT AND PLAN: 1. Neutropenia. He is on prophylactic antibiotics. From a surgical standpoint, these can be discontinued per medical discretion. The patient is ready for discharge home in the morning. 2. Esophageal cancer, scheduled for radiation therapy in the morning. From a General Surgery standpoint, the patient could be discharged home in the morning and be transferred for radiation therapy prior to going home or could have radiation therapy in the morning and discharge home later in the day per medical discretion. 3. Feeding tube dislodgement. This has been replaced yesterday. We will initiate 10 to 12 hour feeding tube regimen. We will initiate Lortab Elixir, Tylenol, Motrin per feeding tube p.r.n. pain. We will order a Duragesic patch 50 mcg every 72 hours for pain control. We will discontinue the SENIOR [employer] SOFTWARE DEVELOPER later today. The patient's TPN will be discontinued after this bag. Accu-Cheks discontinued after the TPN is completed. IV fluids discontinued. From a surgical standpoint, the patient could be discharged home tomorrow before/after radiation therapy. 4. The patient should follow up with the surgery Dr. Cadet in approximately 2 to 3 weeks. Sutures are absorbable and no sutures to remove. bag worker has been consulted, his communication nurses also regarding followup and plan as stated above. Job ID: [id number]
[2018-09-21] MEDS: Famotidine 20 MG TAB PER TUBE SCH ×2 (09:59→21:08)
[2018-09-21] MEDS ORDERED: fentaNYL 50 mcg/hour Patch TD SCH (11:00)
[2018-09-21] MEDS: Hydrocodone-Acetamin 15 ML UDCUP PER TUBE PRN ×2 (16:15→22:16)
[2018-09-21 21:58] LABS: Vancomycin, Trough 29.3 ug/mL
[2018-09-21] MEDS ORDERED: Vancomycin HCl 1.5 GM in Sodium Chloride 0.9% 250 ML 300 ML IVPB SCH (22:15)
[2018-09-22 06:31] LABS: Anion Gap 10 mmol/L (10-20); BUN (Urea Nitrogen) 15 mg/dL (8.4-25.7); Calc. Creatinine Clearance 131 mL/min (70-130); Calcium 7.7 mg/dL (7.8-10.44); Carbon Dioxide 21 mmol/L (23-31); Chloride 106 mmol/L (98-107); Estimated GFR-MDRD Greater than 90; Glucose 109 mg/dL (83-110); Potassium 4.1 mmol/L (3.5-5.1); Sodium 133 mmol/L (136-145)
[2018-09-22] MEDS: Mometasone 100 MCG HFA INHALER INH SCH (07:11)
[2018-09-22] MEDS: Hydrocodone-Acetamin 15 ML UDCUP PER TUBE PRN (07:32)
[2018-09-22] MEDS: Famotidine 20 MG TAB PER TUBE SCH (08:55)
[2018-09-22] MEDS: Cefepime 1 GM in Sodium Chloride 0.9% 100 ML IVPB SCH (08:55)
[2018-09-22] MEDS: Enoxaparin Sodium 40 MG/0.4 ML SYRINGE SC SCH (08:55)
[2018-09-22] MEDS ORDERED: Polyethylene Glycol 3350 17 GM Packet PER TUBE SCH (09:00)
[2018-09-22] MEDS ORDERED: Vancomycin HCl 1.5 GM in Sodium Chloride 0.9% 250 ML 300 ML IVPB SCH (10:00)
[2018-09-22 12:16] LABS: Mean Corpuscular Hemoglobin 30.5 pg (27.0-31.0); Mean Corpuscular Volume 89.7 fL (78.0-98.0); Mean Platelet Volume 7.8 fL (7.4-10.4); Platelet Count 161 thou/uL (130-400); RBC Distribution Width 16.1 % (11.5-14.5); Red Blood Cell (RBC) Count 3.29 mill/uL (4.70-6.10); White Blood Cell (WBC) Count 3.8 thou/uL (4.8-10.8)
[2018-09-22 12:37] VITALS: BP 124/61; TEMP 97.9
[2018-09-22 12:40] LABS: Anisocytosis SLIGHT = 6-15 cells (100X) (0-5/hpf); Band 16 % (5-11); Lymphocytes 7 % (21-51); MDiff Complete? YES; Monocytes 11 % (0-10); Neutrophil 65 % (42-75); PLT Morphology Comment Appears Adequate; Polychromasia SLIGHT = 2-3 cells (100X) (0-2/hpf); Reactive Lymphocytes 1 % (0-10)
--- NOTE | 2018-09-23 14:40 | DIS ---
DATE OF ADMISSION: 09/16/2018 DATE OF DISCHARGE: 09/22/2018 PRIMARY CARE DOCTOR: DISCHARGE DIAGNOSES: 1. Neutropenic fever. 2. Chemotherapy-induced neutropenia. 3. Esophageal cancer. 4. Asthma without acute exacerbation. 5. PEG tube malfunction. CONSULTATIONS: 1. Gastroenterology, Dr. Syd Bal. 2. Oncologist, Dr. Orlando Goncalves. 3. General Surgery, Dr. Manny Cadet. PROCEDURES: PEG tube replacement. HISTORY AND PHYSICAL: Mr. Palomo is a 73-year-old gentleman with a history of esophageal cancer, who presented to the emergency department on 09/16/2018 with complaints of fever. He has a history of esophageal cancer, had port placed and a PEG tube placed symptoms and started chemotherapy around Thanksgiving external beam radiation. He developed fevers in the emergency department. He was found to be neutropenic and so we were called for admit. HOSPITAL COURSE: The patient was seen and examined by Dr. Jnesen. The patient was started on vancomycin and cefepime. Oncology and Gastroenterology were consulted due to PEG tube malfunction and subsequently Dr. Cadet was consulted. The patient went to the operating room on 09/20 for PEG tube replacement, which he did well with. Last fever was on 09/19 with . Today, his total white count was 8.2, he has 84% granulocytes and afebrile. He is doing better. He was transitioned to oral antibiotics. He has PEG tube and was transitioned home with outpatient followup. PHYSICAL EXAMINATION: The patient was seen and examined on the day of discharge. Discharge plan and disposition were discussed with the patient [id number] at the bedside. DISCHARGE MEDICATIONS: Please see medicine reconciliation discharge sheet. New medication: per PEG tube daily for five more days. FOLLOWUP: 1. Radiation Oncology for external beam radiation today after discharge. 2. Primary care physician in 1 week. 3. Oncology . DISCHARGE DIET: Continue tube feeds. DISCHARGE CONDITION: Stable. DISPOSITION: Discharged home via private vehicle. Job ID: [id number]
== END 2018-09-22 12:42 | disposition home or self-care (01) | DRG 345 ==
LOC: ERS 16:52 → ONC 20:01
PROVIDERS: ADMIT Internal Medicine; ATTEND Internal Medicine
PROC: 3E0336Z Introduction of Nutritional Substance into Peripheral Vein, Percutaneous Approach (ICD-10-PCS; 2018-09-16)
PROC: 0DWD0UZ Revision of Feeding Device in Lower Intestinal Tract, Open Approach (ICD-10-PCS; principal; 2018-09-20)
PROC: 3E0G76Z Introduction of Nutritional Substance into Upper GI, Via Natural or Artificial Opening (ICD-10-PCS; 2018-09-20)
DX: K94.23 Gastrostomy malfunction (principal); C15.9 Malignant neoplasm of esophagus, unspecified; E87.1 Hypo-osmolality and hyponatremia; E46 Unspecified protein-calorie malnutrition; D70.9 Neutropenia, unspecified; R50.81 Fever presenting with conditions classified elsewhere; E86.0 Dehydration; R94.5 Abnormal results of liver function studies; J45.909 Unspecified asthma, uncomplicated; Z68.33 Body mass index [BMI] 33.0-33.9, adult; Z53.31 Laparoscopic surgical procedure converted to open procedure; Z82.49 Family history of ischemic heart disease and other diseases of the circulatory system; Z82.3 Family history of stroke; Z83.3 Family history of diabetes mellitus
CPT/HCPCS: 36415; 36416; 71045; 77336; 77386; 80048; 80053; 80061; 80202; 81003; 81015; 83605; 83735; 84100; 84134; 85007; 85025; 85027; 85610; 85730; 87040; 87804; 94664; 96361; 96365; 96367; G8978-GP-CJ; G8979-GP-CH; J0131; J0670; J0692; J1100; J1642; J1650; J1885; J2001; J2274; J2405; J2704; J3010; J3370; J7050

== ENCOUNTER 2018-10-30 07:27 | Outpatient (CLI) | payer MEDICARE ==
--- NOTE | 2018-10-30 14:40 | PET ---
RADIONUCLIDE PET SCAN WITH CT ATTENUATION CORRECTION: Date: 10/30/18 HISTORY: Esophageal cancer. Previous chemotherapy and radiation therapy. FINDINGS: History does not clarify whether prior surgery has been performed. There is a report from a PET scan performed in [place] on 07/22/18. The images from that study are not available. No previous cross-sectio nal imaging is available for correlation. There is circumferential wall thickening of the distal esophagus to the level of the upper stomach wi th some fluid in the distal esophagus. Maximum SUV 6.3. Patchy areas of parenchymal opacity are present throughout each lung. Greater in surface area than th e parenchymal opacity on CT images are ill-defined areas of increased radiotracer uptake on the PET s can. Within the left upper lobe, maximum SUV associated with the hypermetabolic parenchymal activity is 6.0. An area of interstitial and alveolar opacity at the medial aspect of the right upper lobe nadja ws maximum SUV of 7.0. Markedly increased uptake at the right perihilar level in an area of ill-defin ed parenchymal opacity shows a maximum SUV of 7.9. Associated with anterior abdominal wall scar at the midline at the left of the anterior renal poles i s a focus of uptake with maximum SUV of 5.5. There are scattered small sclerotic lesions of the pelvis and lower spine. The larger lesions tend to be associated with increased activity. At the L4 vertebral body, a focus of abnormal uptake shows ma ximum SUV of 4.6. Lesions are also present at the left iliac wing (maximum SUV 4.7), left acetabulum (maximum SUV 4.2), and the posterior aspect of the left side of the sacrum (maximum SUV 3.9). IMPRESSION: 1. Residual circumferential wall thickening and hypermetabolic activity associated with the distal e sophagus, similar to that described on report from prior exam (images not available for comparison). 2. New hypermetabolic sclerotic lesions of the lumbar spine and pelvis as detailed above. 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 3. While the markedly hypermetabolic activity associated with each lung, as detailed above, might be thought to be related to inflammation from radiation, infection, or aspiration, the fact that there are new osseous lesions make the lung abnormalities of concern for potential additional underlying me tastatic disease. POS: JOSSE
--- NOTE | 2018-10-30 15:06 | PFT ---
PATIENT HISTORY: HEIGHT: 70 WEIGHT: 190 SMOKER: NO HOW LON YRS PACKS PER DAY: .5 PRODUCTIVE COUGH: YES LUNG DISEASE: PHYSICIAN INTERPRETATION FINAL REPORT: There is moderate reduction in Expiratory Flows and Vital Capacity present. There was no further improvement following Bronchodilator RV hyper-expanded, RV/TLC was hyper-inflated; gas transfer severely reduced. IMPRESSION: Obstructive ventilatory impairment. Reduced Diffusion capacity. Airport Control Operator: BLANCA B2B Appointment Setter: BLANCA GRECO
== END 2018-10-30 07:28 | disposition home or self-care (01) ==
LOC: CP 07:27
PROVIDERS: ATTEND Thoracic Surgery (Cardiothoracic Vascular Surgery)
DX: C15.9 Malignant neoplasm of esophagus, unspecified (principal); J45.909 Unspecified asthma, uncomplicated; M89.9 Disorder of bone, unspecified; R94.2 Abnormal results of pulmonary function studies
CPT/HCPCS: 78815; 94060; 94727; 94729; A9552